=== PATIENT | female | born 1955 | race Caucasian/White ===

== ENCOUNTER 2020-05-17 07:22 | Observation (INO) | payer OTHER ==
[~2020-05-17] VITALS: Ht 167.6 cm; Wt 114.6 kg
[2020-05-17 08:12] LABS: HEMATOCRIT 29.4 % (37.0-47.0); HEMOGLOBIN 10.2 gm/dL (12.0-15.0); MCH 32.2 pg (26.0-34.0); MCHC 34.7 g/dL (28.0-37.0); RBC 3.16 mil/uL (4.20-5.00); RDW 15.6 % (10.5-14.5)
[2020-05-17 08:17] VITALS: BP 149/103
[2020-05-17 08:30] LABS: CALCIUM 8.5 mg/dL (8.5-10.1); CREATININE 1.1 mg/dL (0.6-1.0); POTASSIUM 3.3 mmol/L (3.5-5.1)
[2020-05-17] MEDS ORDERED: BENTYL 10 MG CA10 MG PO (08:33)
[2020-05-17] MEDS ORDERED: FUROSEMIDE 40 M40 MG PO (08:34)
[2020-05-17] MEDS ORDERED: GLIPIZIDE 10 MG10 MG PO (08:34)
[2020-05-17] MEDS ORDERED: ASA81BEC PO (08:35)
[2020-05-17] MEDS ORDERED: SIMVASTATIN80 MG PO (08:37)
[2020-05-17] MEDS ORDERED: METFORMIN HCL500 M3 PO (08:38)
[2020-05-17] MEDS ORDERED: KLOR-CON 1010 MEQ PO (08:38)
[2020-05-17] MEDS ORDERED: TOPROL XL50 MG PO (08:39)
[2020-05-17] MEDS ORDERED: PROTONIX40 M2 PO (08:40)
[2020-05-17] MEDS ORDERED: LISINOPRIL-HCT1 EACH PO (08:54)
--- NOTE | 2020-05-17 09:02 | EKG ---
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
[2020-05-17 12:49] VITALS: BP 147/61
[2020-05-17 13:12] VITALS: BP 146/65
--- NOTE | 2020-05-17 15:56 | NUR ---
[age] YEAR OLD FEMALE ADMITTED TO 2N ROOM 216 POST CARDIAC CATH. VSS, SR ON TELE, IVF INFUSING PER ORDER. PT DENIES PAIN/SOA. RIGHT GROIN SITE SOFT C/D/I. PT TOLERATES SNACK AFTER SURGERY. PT UP WALKING TO RESTROOM AFTER 3PM STANDBY ASSIST. PT AT BEDSIDE DURING ADMISSION ASSESSMENT. WILL CONTINUE TO MONITOR.
[2020-05-17 20:38] VITALS: BP 121/49
[2020-05-18 03:06] LABS: GLYCOHEMOGLOBIN (HGB A1C) 6.7 % (4.8-5.6)
[2020-05-18 03:40] VITALS: BP 140/57
--- NOTE | 2020-05-18 04:04 | NUR ---
ASSUMED CARE OF PATIENT AT 1900. RIGHT GROIN SITE REMAINS C/D/I. PULSES PALPABLE. PATIENT AMBULATING INDEPENDENTLY IN ROOM.
[2020-05-18 05:53] LABS: HEMATOCRIT 28.7 % (37.0-47.0); HEMOGLOBIN 9.9 gm/dL (12.0-15.0); MCH 32.7 pg (26.0-34.0); MCHC 34.6 g/dL (28.0-37.0); MCV 94.3 fL (80.0-100.0); RBC 3.04 mil/uL (4.20-5.00); RDW 15.3 % (10.5-14.5); WBC 3.7 thou/uL (4.0-11.0)
[2020-05-18 06:12] LABS: ALBUMIN 3.3 g/dL (3.4-5.0); CALCIUM 8.8 mg/dL (8.5-10.1); POTASSIUM 3.7 mmol/L (3.5-5.1); TOTAL BILIRUBIN 2.1 mg/dL (0.2-1.0); TOTAL PROTEIN 6.9 g/dL (6.4-8.2); TROPONIN-I 0.48 ng/mL (<0.06)
--- NOTE | 2020-05-18 07:39 | EKG ---
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: PAULIE : 1955 Requested By: Summer Rothman Order Number: [id number] MD: Brandon Harris Measurements Intervals [place] Rate: 78 P: 84 [place]: 185 QRS: -9 QRSD: 97 T: 52 QT: 400 QTc: 456 Interpretive Statements Sinus rhythm Baseline wander in lead(s) V4,V5 Compared to ECG 05/17/2020 08:18:29 No significant changes Electronically Signed On 05-18-2020 7:38:59 FACILITIES FLIGHT CHECK PILOT by Brandon Harris [email or web address] <ELECTRONICALLY SIGNED> By: Brandon Harris MD, [facility] 05/18/2038 6 6 Brandon Harris MD, [facility] /EPI
[2020-05-18] MEDS ORDERED: ASA81BEC PO (07:42)
[2020-05-18] MEDS ORDERED: PLAVIX 75 MG TA75 M1 PO (07:42)
[2020-05-18 07:46] VITALS: BP 139/56
--- NOTE | 2020-05-18 08:27 | NUR ---
PT. ALERT AND TALKING WITH STAFF, VERY PLEASANT OVERALL TODAY, EXCITED TO GO HOME. [place]AR [place] SO WILL NEED SOME NOTICE FOR HER TRANSPORTATION. DENIES ANY CHEST PAIN, DENIES ANY SOB. RIGHT GROIN SITE IS C,D,I WITH NO HEMATOMA, SOFT TO TOUCH AND PALPATION. LONG DISCUSSION ON WHAT A HEART HEALTHY DIET CONSISTS OF AND HOW TO PROGRESS WITH SUCH WHEN SHE GOES HOME. COMPLIMENTARY OF OUR HOSPITAL AND OUR CARE OVERALL AND DR WINSTON. NSR, NO ECTOPY ON THE MONITOR AND ON ROOM AIR ONLY.
[2020-05-18 09:56] VITALS: BP 139/56
--- NOTE | 2020-05-19 17:27 | CATHLAB ---
[facility] [place]aliy[place] [address] INVASIVE PROCEDURE REPORT Name: SHANIQUA RAM Room #: 216-P [facility] Tima MMegan#: [id number] Admission: 05/17/20 Attend Phys: Phani Lee MD, Discharge: 05/18/20 Date of : 51 Report #: [id number] THIS REPORT FOR: cc: Rizwan Shaw Jeffrey W. DO Mancuso, Gerald M. MD [facility] ~ APPROVED REPORT Study performed: 05/17/2020 09:26:09 Patient Details Patient Status: Out-Patient Room #: The patient is a 64 year-old female Event Personnel Phani Lee Stripper And Taper, Lev Buitrago RN RN, Sarah Rojo RTR Scrub, Jonathan Thomas RTR Monitor Procedures Performed Right and Left Heart Cath Lt Vent/Cors/Grafts 4236753 RLLVCORCAB PAUL Place w/wo Plasty Single RCA 654873 Art Access - R femoral artery* Reagan Access - R femoral vein 72548 Initial Mod Sed Same Phys/QHP Gr5y 133700 Hemostasis w/ Mynx Abdominal Aortography 590126 31057 Mod Sed Same Phys/QHP Ea 560602 Procedure Narrative The patient was brought electively to the Cardiac Catheterization Laboratory and was prepped and draped in a sterile manner. The Right Groin^ was infiltrated with 1% Lidocaine subcutaneous anesthesia. A Right Heart Catheterization was performed with a 7 Fr. Gaastra-Jaime catheter and pressure were recorded. Cardiac outputs were obtained by the Thermal Dilution method. A PINNACLE 6FR Sheath #[id number] sheath was inserted into the RFA^. Coronary angiography was performed using coronary diagnostic catheters. The right coronary system was accessed and visualized with a JR4 catheter. The left coronary system was accessed and visualized with a JL4 catheter. The left ventricle was accessed and visualized with a PIGTAIL catheter. Closure device was deployed with a Fr MYNXGRIP 6/7F #[id number]. Hemostasis was obtained with manual pressure following sheath removal without any complications. The patient tolerated the procedure well and there were no complications associated with the procedure. There was no hematoma. Intraoperative Conscious Sedation [address] [address] INVASIVE PROCEDURE REPORT Name: SHANIQUA RAM Room #: 216-P [facility] IN [facility]#: [id number] Admission: 05/17/20 Attend Phys: Phani Lee, Discharge: 05/18/20 Date of : 51 Report #: [id number] Sedation start time: 10:40 Case end Time: 11:55 Fentanyl 50 mcg Versed 1.5 mg Fluoro Time: 11.30 minutes Dose: DAP 49120.20 cGycm2 2992 mGy Contrast Type and Amount: Visipaque 190 ml Hemodynamics The right atrial mean pressure is 8 mmHg. The right ventricular pressure is 49/4 mmHg. The pulmonary artery pressure is 43/15 mmHg with a mean of 30 mmHg. The mean pulmonary capillary wedge pressure is 23 mmHg. The aortic pressure is 144/65 mmHg with a mean of 96 mmHg. The left ventricular pressure is 139/13 mmHg with a mean of mmHg. The left ventricular end diastolic pressure is 30 mmHg. The cardiac output using thermo method is 7.90 L/min. The cardiac index using thermo method is 3.59 L/min/m2. PCI Technique Lesion Percutaneous coronary intervention was performed on the proximal right coronary artery. A LAUNCHER 6FR 3DRC #[id number] Guide Catheter was used to engage the RCA ostium. A Luge Wire .014 x 182CM #[id number] Interventional Guidewire was used to cross the lesion. BALLOON DILATION A Balloon catheter Sprinter OTW 2.5 x 12 #[id number] was inserted and inflated up to 14.00atm for 21seconds. Additional Inflation: 18.00atm for 23seconds. STENT DEPLOYMENT A stent RESOLUTE ROE OTW 3.5 X 12 #[id number] was inserted and inflated up to 18.00atm for 39seconds. Conclusion #1. Successful PTCA stent of a high-grade proximal dominant RCA lesion with placement of a 3.5 x 12 resolute drug-eluting stent AVTAR grade III flow. Proximal to this is a 50% narrowing and then distally at the posterior lateral takeoff is a 75% narrowing this is an extensively calcified and dominant vessel brisk flow is currently noted post procedure. #2 left main short mildly diseased calcified giving rise to LAD and circumflex. #3 LAD with mild irregularities there is a proximal eccentric lesion at a diagonal bifurcation of 70 to 75% with a well-preserved vessel and large diagonal branch. #4 circumflex OM nondominant with mild disease [facility] [address] [place] [address] INVASIVE PROCEDURE REPORT Name: SHANIQUA RAM Room #: 216-P DIS IN M.R.#: [id number] Admission: 05/17/20 Attend Phys: Phani Lee, Discharge: 05/18/20 Date of : 51 Report #: [id number] #5 normal left jugular size and systolic function EF 55% #6 abdominal aortogram shows mild aortic ectasia but no significant aneurysm. Recommendations and plan: Dual antiplatelet therapy has been initiated. She is hemodynamically stable. This is extensively calcified dominant right coronary artery. There is an ostial posterior lateral branch lesion but it may be difficult to technically get to this lesion due to the extensive calcification. Transferred to CCU in stable condition. Will follow up with stress testing looking for areas of ischemia involving the posterior lateral branch and LAD before staged intervention. <ELECTRONICALLY SIGNED> By: Phani Lee MD, FACC 05/19/201726 26 26 Phani Lee MD, FACC /INF
== END 2020-05-18 11:57 | disposition home or self-care (01) ==
LOC: CATH 07:22 → 2N 11:21 → CATH 11:22 → 2N 05-18 11:57
PROVIDERS: Nurse Practitioner Adult Health; ADMIT Internal Medicine Cardiovascular Disease; ATTEND Internal Medicine Cardiovascular Disease
DX: I25.10 Atherosclerotic heart disease of native coronary artery without angina pectoris (principal); I10 Essential (primary) hypertension; E78.00 Pure hypercholesterolemia, unspecified; E11.9 Type 2 diabetes mellitus without complications; I47.1 Supraventricular tachycardia; E78.5 Hyperlipidemia, unspecified; E66.9 Obesity, unspecified; G47.33 Obstructive sleep apnea (adult) (pediatric); Z79.84 Long term (current) use of oral hypoglycemic drugs; Z79.82 Long term (current) use of aspirin; Z79.899 Other long term (current) drug therapy

== ENCOUNTER → 2020-06-19 | Outpatient (CLI) | payer OTHER ==
[~2020-06-19] MED LIST: ASA81BEC PO; BENTYL 10 MG CA10 MG PO; FUROSEMIDE 40 M40 MG PO; GLIPIZIDE 10 MG10 MG PO; KLOR-CON 1010 MEQ PO; LISINOPRIL-HCT1 EACH PO; METFORMIN HCL500 M3 PO; PLAVIX 75 MG TA75 M1 PO; PROTONIX40 M2 PO; SIMVASTATIN80 MG PO; TOPROL XL50 MG PO
== END ==
LOC: SJCVC 11:56
PROVIDERS: ATTEND Internal Medicine Cardiovascular Disease
DX: I25.10 Atherosclerotic heart disease of native coronary artery without angina pectoris (principal); I10 Essential (primary) hypertension; E78.00 Pure hypercholesterolemia, unspecified; E11.9 Type 2 diabetes mellitus without complications; I47.1 Supraventricular tachycardia; Z79.82 Long term (current) use of aspirin; Z79.899 Other long term (current) drug therapy

== ENCOUNTER 2020-11-17 16:43 | Inpatient (IN) | payer OTHER ==
[~2020-11-17] VITALS: Ht 167.6 cm; Wt 116.4 kg
[2020-11-17 18:28] VITALS: BP 112/59
--- NOTE | 2020-11-17 19:40 | NUR ---
RECEIVED PT FROM EMS. PT COMES FROM [place], [place]. PT IS AXOX4, WITH SOME DYSPHAGIA. VSS, AFEBRILE, AFIB ON MONITOR WITH HR 100s. ADMISSION COMPLETED. PT IS TO BE NPO. GI CONSULTED. DR BROWN CONSULTED. PT IS ON HIGH FALL RISK PRECAUTIONS. NO CONCERNS AT THIS TIME.
[2020-11-17 21:01] VITALS: BP 134/65
[2020-11-17] MEDS ORDERED: PACERONE200 MG PO (21:43)
[2020-11-17 22:57] VITALS: BP 108/60; BP 111/61
[2020-11-18] VITALS (7 sets, daily range): BP systolic 106–133; BP diastolic 49–76
[2020-11-18 03:30] LABS: HEMATOCRIT 22.1 % (37.0-47.0); HEMOGLOBIN 7.5 gm/dL (12.0-15.0); MCH 30.4 pg (26.0-34.0); MCHC 33.7 g/dL (28.0-37.0); RBC 2.46 mil/uL (4.20-5.00); RDW 16.8 % (10.5-14.5); WBC 3.6 thou/uL (4.0-11.0)
[2020-11-18 03:41] LABS: CALCIUM 8.5 mg/dL (8.5-10.1); CREATININE 1.5 mg/dL (0.6-1.0); MAGNESIUM 1.7 mg/dL (1.8-2.4); POTASSIUM 3.5 mmol/L (3.5-5.1); TOTAL BILIRUBIN 1.8 mg/dL (0.2-1.0); TOTAL PROTEIN 6.4 g/dL (6.4-8.2)
--- NOTE | 2020-11-18 04:08 | NUR ---
ASSUMED PT CARE AT 1900.PT'S DTR AND SPOUSE AT BEDSIDE AT SHIFT CHANGE.PT GOT 1 UNIT OF BLOOD ORDERED,NO TRANSFUSION RXN NOTED.PT ALERT AND ORIENTED WITH CONFUSION.BRUISING NOTED TO HER ABD AND ARMS.BG MONITORED NO COVERAGE NEEDED AT HS.PT NPO AT THIS TIME FOR AN EGD LATER IN THE DAY.PT'S FAMILY UPDATED ON THE PROCEDURE.PT EPOSITIONED PER HER REQUEST.PT SLEEPING ON HER BED AT THIS TIME.CALL LIGHT WITHIN REACH.
--- NOTE | 2020-11-18 15:45 | NUR ---
PT IS AXOX4, PLEASANT, STILL SOMEWHAT DYSPHAGIC. VSS, AFEBRILE, ST ON MONITOR. PT SCHEDULED EGD SCOPE TODAY. PT RECEIVING BLOOD POST PROCEDURE. POC IS TO CONTINUE TO MONITOR H+H, BP/HR. PT DISCONTINUED FROM RX BLOOD THINNERS, USING RX MEDS TO CONTROL HR. FALL PRECAUTIONS IN PLACE. FREQUENT MONITORING.
[2020-11-18 20:01] LABS: HEMATOCRIT 24.5 % (37.0-47.0); HEMOGLOBIN 8.2 gm/dL (12.0-15.0); MCH 30.3 pg (26.0-34.0); MCHC 33.5 g/dL (28.0-37.0); MCV 90.3 fL (80.0-100.0); RBC 2.71 mil/uL (4.20-5.00); RDW 16.6 % (10.5-14.5)
[2020-11-19] VITALS (8 sets, daily range): BP systolic 108–148; BP diastolic 45–77
--- NOTE | 2020-11-19 01:51 | NUR ---
PT WAS OBSERVED LYING ON HER BED WATCHING TV IN THE COMPANY OF HER DTR AT SHIFT CHANGE.PT MORE ALERT, A LITTLE APHASIC.PT CONT ON IVF AND PROTONIX DRIP.ORDER NOTED FOR A CT SCAN,COMPLETED.BG MONITORED AT HS ,COVERAGE GIVEN.PT SLEEPING WIYH HER CPAP A THIS TIME.CALL LIGHT WITHIN REACH.
[2020-11-19 05:34] LABS: HEMATOCRIT 25.1 % (37.0-47.0); HEMOGLOBIN 8.4 gm/dL (12.0-15.0); MCH 30.3 pg (26.0-34.0); MCHC 33.6 g/dL (28.0-37.0); MCV 90.3 fL (80.0-100.0); PLATELET COUNT 109 thou/uL (150-400); RBC 2.78 mil/uL (4.20-5.00); RDW 16.3 % (10.5-14.5); WBC 2.9 thou/uL (4.0-11.0)
[2020-11-19 05:59] LABS: CALCIUM 8.4 mg/dL (8.5-10.1); CREATININE 1.4 mg/dL (0.6-1.0); MAGNESIUM 1.9 mg/dL (1.8-2.4); PHOSPHORUS 3.3 mg/dL (2.6-4.7); POTASSIUM 3.5 mmol/L (3.5-5.1); TOTAL BILIRUBIN 1.5 mg/dL (0.2-1.0); TOTAL PROTEIN 6.6 g/dL (6.4-8.2)
--- NOTE | 2020-11-19 09:06 | EKG ---
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: CLARI : 1955 Requested By: Makenna Perez Order Number: [id number] : Brandon Harris Measurements Intervals [place] Rate: 97 P: [place]: QRS: -1 QRSD: 98 T: 20 QT: 375 QTc: 477 Interpretive Statements Atrial fibrillation Borderline low voltage, extremity leads Compared to ECG 05/18/2020 07:07:53 Sinus rhythm no longer present Electronically Signed On 11-19-2020 9:06:43 CDT by Brandon Harris [email or web address] <ELECTRONICALLY SIGNED> By: Brandon Harris MD, [facility] 11/19/20905 6 6 Brandon Harris MD, FACC /EPI
[2020-11-19 09:13] LABS: ABSOLUTE NEUTROPHILS 1.5 thou/uL (1.4-8.2)
[2020-11-19 09:15] LABS: ANISOCYTOSIS 1+; POLYCHROMASIA OCCASIONAL
--- NOTE | 2020-11-19 10:43 | NUR ---
PT IS AXOX4, PLEASANT, SOME HESITANCY WHEN SPEAKING. VSS, AFEBRILE, AFIB ON MONITOR. DR CAMACHO CONSULTED, DR CARDOZA CONSULTED. PT HAD CT SCAN OF HEAD. NEURO ASSESSMENT CONDUCTED BY DR CARDOZA. POC IS TO CONTINUE PROTONIX AND ABX THERAPY, MONITOR VS. PT ON RX AMIODARONE. BLOOD THINNERS CURRENTLY ON HOLD. FALL PRECAUTIONS IN PLACE. NO CONCERNS AT THIS TIME.
[2020-11-20 04:00] VITALS: BP 129/67
[2020-11-20 06:16] LABS: ABSOLUTE NEUTROPHILS 2.4 thou/uL (1.4-8.2); BASOPHILS 0.5 % (0.0-2.0); EOSINOPHILS 4.3 % (0.0-3.0); HEMATOCRIT 24.2 % (37.0-47.0); HEMOGLOBIN 8.3 gm/dL (12.0-15.0); LYMPHOCYTES 20.5 % (24.0-44.0); MCH 30.3 pg (26.0-34.0); MCHC 34.3 g/dL (28.0-37.0); MCV 88.3 fL (80.0-100.0); MONOCYTES 8.3 % (1.0-8.0); PLATELET COUNT 114 thou/uL (150-400); POLYS 66.4 % (36.0-66.0); RBC 2.75 mil/uL (4.20-5.00); RDW 16.4 % (10.5-14.5); WBC 3.7 thou/uL (4.0-11.0)
[2020-11-20 06:31] LABS: CALCIUM 8.2 mg/dL (8.5-10.1); CREATININE 1.1 mg/dL (0.6-1.0); MAGNESIUM 1.8 mg/dL (1.8-2.4); POTASSIUM 3.8 mmol/L (3.5-5.1)
--- NOTE | 2020-11-20 07:38 | NUR ---
ASSUMED PT CARE AT CHANGE OF SHIFT, AFIB ON THE MONITOR HR IN THE 100S, ASSESSMENTS CHARTED, ENEMA GIVEN THIS MORNING, DENIES PAIN OR SOB, VSS, NO NEEDS AT THIS TIME, PASSED ON REPORT TO DAY NURSE
[2020-11-20 08:48] VITALS: BP 142/68
[2020-11-20 11:00] VITALS: BP 128/66
--- NOTE | 2020-11-20 13:22 | NUR ---
Received order for diabetic teaching with spouse/pt. 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 Hx diabetes, obesity, nonalcoholic cirrhosis. Pt is currently npo and ST orders to evaluate. Last A1C 6.7 in 05/2020. BG 118-292, recommend recheck A1C. Will followup with pt and spouse on 11/21 for diabetic education needs.
[2020-11-20 14:10] VITALS: BP 127/63
[2020-11-20] MEDS ORDERED: SODIUM BICARBO650 M3 PO (15:56)
[2020-11-20] MEDS ORDERED: B-12500 MCG PO (15:56)
[2020-11-20] MEDS ORDERED: NYSTATIN-TRIAMC15 GM TOP (15:56)
[2020-11-20] MEDS ORDERED: CARDIZEM CD 18180 M3 PO (15:56)
--- NOTE | 2020-11-20 16:29 | NUR ---
INITIAL ASSESSMENT: KASH reviewed chart and spoke with nursing and attending physician. Pt was transferred to [facility] from [facility] due to GI bleed/anemia. Pt had negative COVID test on 11/18. Pt has had an EGD and colonoscopy. 5N consulted. KASH met with pt, dtr and spouse at bedside. Introduced role of SW. Pt is alert/orientated x 4. Pt report she lives at home with her in [place]. Pt's dtr is in town and will be staying with pt and spouse upon discharge. Pt and family prefer pt return home with HH or outpatient therapy. Pt has a cane/walker at home. There are 2 steps to enter and no steps inside. Pt has used HH in the past. Unsure name of provider. Pt's PCP is Aron Ruth NP. KASH provided list of HH agencies who go to [place] ([facility] and [facility]). Pt's family to review and discuss. Discharge plan is anticipated for tomorrow. KASH updated attending physician. KASH is following to assist as needed with discharge planning.
[2020-11-20 20:00] VITALS: BP 136/75; BP 159/73
[2020-11-20 21:01] VITALS: BP 159/73
[2020-11-21 00:05] VITALS: BP 136/74
--- NOTE | 2020-11-21 03:38 | NUR ---
ASSUMED PT CARE AT 1900, PT IS AWAKE, ALERT AND ORIENTED, AFIB ON THE MONITOR WITH HR IN THE 120S, DENIES CP OR SOB, CARDIZEM GIVEN, VSS, ASSESSMENTS CHARTED, OTHER SCHEDULED MEDS GIVEN PER SEP, HR BETTER IN THE 90S TO LOW 100, SLEPPT MOST OF THE NIGHT, NO NEEDS AT THIS TIME, WILL CONTINUE TO MONITOR AND FOLLOW POC
[2020-11-21 04:00] VITALS: BP 146/75
[2020-11-21 04:45] VITALS: BP 146/75
[2020-11-21 08:30] LABS: HEMATOCRIT 25.9 % (37.0-47.0); HEMOGLOBIN 8.6 gm/dL (12.0-15.0); MCH 29.7 pg (26.0-34.0); MCHC 33.1 g/dL (28.0-37.0); MCV 89.9 fL (80.0-100.0); RBC 2.89 mil/uL (4.20-5.00); RDW 16.4 % (10.5-14.5); WBC 3.7 thou/uL (4.0-11.0)
--- NOTE | 2020-11-21 10:07 | 2DMMODE ---
[facility] [place] [address] 2 D/M-MODE ECHOCARDIOGRAM Name: SHANIQUA RAM Room #: 203-P ADM IN M.R.#: [id number] Admission: 11/17/20 Attend Phys: Makenna Perez MD Discharge: Date of : 51 Report #: [id number] THIS REPORT FOR: cc: Rizwan Shaw Jeffrey W. DO Santiago, Patrick MD [facility] ~ APPROVED REPORT Study performed: 11/21/2020 08:34:03 EXAM: Comprehensive 2D, Doppler, and color-flow Echocardiogram Patient Location: Bedside Room #: 203 Status: routine BSA: 2.22 HR: 83 bpm BP: 142/68 mmHg Rhythm: Atrial Fibrillation Other Information Study Quality: Good Indications Atrial Fibrillation Hx: CAD, PCI, SVT, HTN, HLP, DM. morbid obesity. 2D Dimensions RVDd: 42.84 mm IVSd: 10.65 (7-11mm) LVOT Diam: 21.04 (18-24mm) LVDd: 57.35 mm PWd: 10.65 (7-11mm) LVDs: 40.73 (25-40mm) Left Atrium: 41.30 (27-40mm) Aortic Root: 34.05 mm Volumes Left Atrial Volume (Systole) Single Plane 4CH: 91.93 mL Single Plane 2CH: 92.71 mL LA ESV Index: 47.00 mL/m2 Aortic Valve AoV Peak Uriel.: 1.39 m/s AO Peak Gr.: 7.67 mmHg LVOT Max P.39 mmHg LVOT Max V: 1.05 m/s [facility] [address] [place] [address] 2 D/M-MODE ECHOCARDIOGRAM Name: SHANIQUA RAM Room #: 203-P [facility] IN ..#: [id number] Admission: 11/17/20 Attend Phys: Makenna Perez, Discharge: Date of : 51 Report #: [id number] Vmax: 2.63 cm2 Mitral Valve MV Decel. Time: 189.64 ms MV E Max Uriel.: 1.51 m/s Pulmonary Valve PV Peak Uriel.: 0.92 m/s PV Peak Gr.: 3.42 mmHg Tricuspid Valve TR Peak Uriel.: 2.66 m/s RAP Estimate: 5.00 mmHg TR Peak Gr.: 28.32 mmHg PA Pressure: 33.00 mmHg Left Ventricle The left ventricle is normal size. There is normal LV segmental wall motion. There is normal left ventricular wall thickness. Left ventricular systolic function is low normal. LVEF is 50-55%. This study is not technically sufficient to allow evaluation of the LV diastolic function due to atrial fibrillation. Right Ventricle The right ventricle is normal size. The right ventricular systolic function is normal. Atria Left atrium is moderately dilated. Right atrium is mildly dilated. Aortic Valve The aortic valve is normal in structure; mildly thickened. No aortic regurgitation is present. There is no aortic valvular stenosis. Mitral Valve The mitral valve is normal in structure. Mild mitral annular calcification. Mild to moderate mitral regurgitation. No evidence of mitral valve stenosis. Tricuspid Valve The tricuspid valve is normal in structure. Mild to moderate tricuspid regurgitation. Estimated PAP is 35-40mmHg. Pulmonic Valve Pulmonic valve is not well visualized. Trace pulmonic regurgitation. [facility] [address] [address] 2 D/M-MODE ECHOCARDIOGRAM Name: SHANIQUA RAM Room #: 203-P ADM IN M.R.#: [id number] Admission: 11/17/20 Attend Phys: Makenna Perez, Discharge: Date of : 51 Report #: [id number] Great Vessels The aortic root is normal in size. The ascending aorta is normal in size. IVC is normal in size and collapses >50% with inspiration. Pericardium There is no pericardial effusion. <Conclusion> Study performed in atrial fibrillation Normal left ventricular size/wall thickness Ejection fraction 50-55% Normal right ventricular size/function Left atrium moderately dilated Right atrium mildly dilated Color-flow Doppler study was performed of the aortic/mitral/tricuspid/pulmonary valve Normal aortic valve structure and function Mild mitral annular calcification Mild to moderate tricuspid valve insufficiency Pulmonary systolic pressure estimated 35/40 mmHg Normal aortic root size No pericardial effusion <ELECTRONICALLY SIGNED> By: Brandon Harris MD, FACC 11/21/20 1007 1007 1007 Brandon Harris MD, FAC /INF
--- NOTE | 2020-11-21 11:08 | NUR ---
SW reviewed chart and spoke with attending physician. Pt is progressing towards goals for discharge. Discharge home with HH is anticipated in 1-2 days. SW met with pt and dtr at bedside to discuss discharge plan. Pt's spouse is calling the two agencies that go to pt's home: [facility] and [facility]. SW reminded pt and dtr that [facility] does not have physical therapy available this week. Pt's spouse to interview both HH agencies. Pt/dtr is to contact SW with preference of HH agency, in order for HH referral to be sent. SW is following to assist as needed with discharge planning.
[2020-11-21 12:34] VITALS: BP 119/56
--- NOTE | 2020-11-21 12:58 | NUR ---
AWAKE, ALERT, CALM. ADULT DTR AT BEDSIDE. CALLS FOR ASSISTANCE APPROPRIATELY. AFIB PER TELE; DILTIAZEM ADDED, HR BETTER CONTROLLED.
[2020-11-21 16:00] VITALS: BP 109/70; BP 137/66
[2020-11-21 20:30] VITALS: BP 123/53
[2020-11-22 02:39] LABS: HEMATOCRIT 25.5 % (37.0-47.0); HEMOGLOBIN 8.4 gm/dL (12.0-15.0); MCH 29.9 pg (26.0-34.0); MCHC 33.1 g/dL (28.0-37.0); MCV 90.5 fL (80.0-100.0); RBC 2.82 mil/uL (4.20-5.00); RDW 16.5 % (10.5-14.5); WBC 5.4 thou/uL (4.0-11.0)
--- NOTE | 2020-11-22 03:44 | NUR ---
ASSESSMENTS CHARTED, MEDS CHARTED GIVEN. PATIENT RESTING IN BED DURING SHIFT. USING HOME CPAP AT [facility]. UP WITH WALKER TO BATHROOM. PATIENT HAS MULTIPLE BRUISES FROM FALL AT HOME. PLAN OF CARE IS TO GO HOME WITH HOME HEALTH. FALL PRECAUTIONS IN PLACE DURING SHIFT.
[2020-11-22 04:45] VITALS: BP 113/63
[2020-11-22 07:18] VITALS: BP 119/44
--- NOTE | 2020-11-22 08:24 | NUR ---
BPCI letter and preferred provider list provided to patient, live in home setting
[2020-11-22 10:49] VITALS: BP 119/44
[2020-11-22 11:29] VITALS: BP 144/64
[2020-11-22] MEDS ORDERED: PROTONIX40 M4 PO (11:58)
[2020-11-22] MEDS ORDERED: METOPROLOL SUCC50 MG PO (11:58)
[2020-11-22] MEDS ORDERED: ELIQUIS2.5 MG PO (11:58)
[2020-11-22] MEDS ORDERED: CARDIZEM CD120 MG PO (11:58)
[2020-11-22 12:28] VITALS: BP 119/44
--- NOTE | 2020-11-22 13:15 | NUR ---
ASSUMED CARE SHIFT CHANGE. VSS. DENIES SOB. DENIES PAIN. DAUGHTER AT BEDSIDE. UPDATED ON POC. PLAN FOR HOME WITH HH. DC ORDERS. DISCUSSED WITH PT, COMMUNICATES UNDERSTANDING. TELE REMOVED. IV REMOVED. PT TO LEAVE UNIT WITH ALL BELONGINGS ACCOMPANIED BY DAUGHTER.
[2020-11-22] MEDS ORDERED: XIFAXAN550 M1 PO (13:38)
--- NOTE | 2020-11-22 15:10 | NUR ---
met with patient and dtr. They chose [facility]. Sp with admissions at [facility] and faxed initial referral before orders. Rachel in admissions reports Rn cannot see patient until friday and therpay not until next week. Updated patient and family they are agreeable. Updated phys who is agreeable if family ok and they are. Faxed final orders. SP with Rachel in admissions who received final orders. Updated correct phone number to call for HH care. no further needs
--- NOTE | 2020-11-24 08:09 | P ---
[facility] [place] [address] PROCEDURE REPORT Name: SHANIQUA RAM Room #: 203-P [facility] IN M.R.#: [id number] Admission: 11/17/20 Attend Phys: Makenna Perez MD Discharge: 11/22/20 Date of : 51 Report #: [id number] THIS REPORT FOR: cc: Rizwan Shaw Jeffrey W. DO McElhinney, Christian C. MD ~ DOC #: [id number] cc: Makenna Perez MD, DO Logan Alejandre MD DATE OF SERVICE: 11/18/2020 PROCEDURE PERFORMED: Upper endoscopy with bleeding control. HISTORY OF PRESENT ILLNESS: The patient is a 65-year-old female with a history of anemia, chronic atrial fibrillation, on Eliquis. She has a history of nonalcoholic cirrhosis, gastroesophageal reflux disease, on daily PPI therapy. Admit hemoglobin at [facility] was 6.5. She has had altered mental status recently as well. She also takes aspirin and Plavix. No previous history of GI bleed. Unsure when her last EGD if ever and colonoscopy was performed. The patient with some dark stools recently. DESCRIPTION OF PROCEDURE: The risks and benefits of the procedure were explained to the patient, those risks including but not limited to bleeding, perforation and the risk of sedation. She understood these risks and gave informed consent. Sedation was given using propofol per anesthesia. Next, using a standard Olympus upper endoscope, the scope was placed in the patient's mouth and advanced under direct vision through the esophagus, stomach and into the second portion of the duodenum. The esophagus was normal throughout. The GE junction was normal. There was a mild area of gastritis in the mid body of the stomach. The fundus was normal. 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 No evidence of bleeding. There was no blood throughout the exam today. Because of her history of anemia and blood thinners, I did proceed with cauterization using an APC cautery of all areas that were seen in the gastric antrum. No evidence of bleeding after cauterization. The pylorus was normal and patent. The duodenal bulb, first and second portion were all normal. The scope was then withdrawn and the procedure terminated. The patient tolerated the procedure well. IMPRESSION: 1. 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 No active bleeding, but can be etiology of anemia and gastrointestinal bleed, status post APC cautery treatment today. 2. Mild gastritis in the mid body. No evidence of bleeding. 3. Otherwise, normal upper endoscopy. [address] [address] PROCEDURE REPORT Name: SHANIQUA RAM Room #: 203-P [facility] IN M.R.#: [id number] Admission: 11/17/20 Attend Phys: Makenna Perez MD Discharge: 11/22/20 Date of : 51 Report #: [id number] RECOMMENDATIONS: 1. Continue to hold anticoagulation at this time. 2. Continue PPI therapy. 3. Monitor hemoglobin now status post APC cautery. We will discuss when her last colonoscopy was performed, may need to consider repeat colonoscopy in the near future as well. Thank you for allowing me to participate in her care. Logan Farnsworth MD CCM/LESLY <ELECTRONICALLY SIGNED> By: Logan Farnsworth MD 11/24/20 0809 [id number] [id number] Logan Farnsworth MD /nt
--- NOTE | 2020-11-24 08:17 | HC ---
[facility] [place] [address] CONSULTATION Name: SHANIQUA RAM Room #: 203-[facility] M.R.#: [id number] Admission: 11/17/20 Attend Phys: Makenna Perez MD Discharge: 11/22/20 Date of : 51 Report #: [id number] THIS REPORT FOR: cc: Rizwan Shaw Jeffrey W. DO McElhinney, Christian C. MD ~ DOC #: [id number] cc: Makenna Perez MD, Linh Llanesdiqui Logan Farnsworth MD DATE OF SERVICE: 11/18/2020 HISTORY OF PRESENT ILLNESS: The patient is a 65-year-old female with a history of anemia. She has chronic atrial fibrillation, on Eliquis. She was admitted to [facility] for evaluation of GI bleed. Hemoglobin at that time was 6.5. She had mental status changes, forgetfulness over the last 10 days. She reports melanotic type stools for several weeks. She has a history of nonalcohol cirrhosis. No previous history of upper GI bleed. She is on again, Eliquis, but also takes aspirin and Plavix. Apparently, she denies any abdominal pain. She has been feeling weak and dizzy. She has undergone a transfusion here of 1 unit of packed cells. Her hemoglobin at this time is 7.5. She states that her last colonoscopy was approximately 2 years ago. She has been followed by GI, Dr. Melton in the past. It is unclear if she has ever had an upper endoscopy. She denies any dysphagia. She does report some nausea and vomiting, but denies any hematemesis. She has a history of irritable bowel syndrome with diarrhea. No chest pain or shortness of breath at this time. Apparently, she is scheduled for cardioversion for her AFib in the next week. PAST MEDICAL HISTORY: Diabetes, fibromyalgia, arthritis, AFib, depression, gastroesophageal reflux disease. She is on Protonix at this time. Irritable bowel syndrome, hypertension, pancreatic insufficiency, coronary artery disease, status post stents, anemia, nonalcohol cirrhosis. PAST SURGICAL HISTORY: Previous cholecystectomy, hysterectomy, appendectomy. MEDICATIONS: Pacerone, Bentyl, Lasix, Glucotrol, simvastatin, potassium chloride, metformin, metoprolol, Protonix, lisinopril, hydrochlorothiazide. She is on aspirin, Eliquis and Plavix. ALLERGIES: No known drug allergies. REVIEW OF SYSTEMS: As per HPI. SOCIAL HISTORY: She denies any tobacco or alcohol use. FAMILY HISTORY: Negative for colon cancer. [address] [address] CONSULTATION Name: SHANIQUA RAM Room #: 203-P DIS IN M.R.#: [id number] Admission: 11/17/20 Attend Phys: Makenna Perez MD Discharge: 11/22/20 Date of : 51 Report #: [id number] PHYSICAL EXAMINATION: VITAL SIGNS: Temperature is 36.4, pulse is 113, blood pressure 113/55, respiratory rate is 18. GENERAL: She is alert and oriented x3 in no acute distress. HEENT: Sclerae nonicteric. Oropharynx clear. NECK: Supple, without lymphadenopathy. CARDIOVASCULAR: Irregular rate. CHEST: Clear to auscultation bilaterally anteriorly. ABDOMEN: Soft, nontender, nondistended. Normoactive bowel sounds. EXTREMITIES: No cyanosis, clubbing or edema. LABORATORY DATA: WBC 3.6, hemoglobin 7.5, platelet count is 128. Sodium 146, potassium 3.5, chloride 107, bicarbonate 25, BUN 36, creatinine 1.5, glucose 150. Hemoglobin A1c is 6.7, magnesium 1.7, lactic acid 1.8, calcium 8.5, total bilirubin 1.8, AST 30, ALT is 25, and alkaline phosphatase 69. Troponin 0.48, total protein 6.4, albumin is 3.0. ASSESSMENT AND PLAN: 1. Anemia, recent melanotic stools, likely upper gastrointestinal bleed. The patient has required 1 unit of packed cells. Hemoglobin at this time is 7.5 after transfusion. Would recommend upper endoscopy today for further evaluation. Agree with PPI therapy and holding anticoagulation therapy. Continue to monitor hemoglobin closely. I will make further recommendations after endoscopy. Thank you for allowing me to participate in her care. Logan Farnsworth MD [facility] <ELECTRONICALLY SIGNED> By: Logan Farnsworth MD 11/24/2017 0937 37 Logan Farnsworth MD /nt
== END 2020-11-22 13:18 | disposition home health service (06) | DRG 377 ==
LOC: 2N 16:43
PROVIDERS: Internal Medicine; Nurse Practitioner; Nurse Practitioner Adult Health; Psychiatry & Neurology Neurology; ADMIT Internal Medicine; ATTEND Internal Medicine
DX: K31.811 Angiodysplasia of stomach and duodenum with bleeding (principal); G93.41 Metabolic encephalopathy; D62 Acute posthemorrhagic anemia; N39.0 Urinary tract infection, site not specified; E87.2 Acidosis; K57.31 Diverticulosis of large intestine without perforation or abscess with bleeding; Z20.822 Contact with and (suspected) exposure to COVID-19; M19.90 Unspecified osteoarthritis, unspecified site; K21.9 Gastro-esophageal reflux disease without esophagitis; I25.10 Atherosclerotic heart disease of native coronary artery without angina pectoris; E11.22 Type 2 diabetes mellitus with diabetic chronic kidney disease; F32.9 Major depressive disorder, single episode, unspecified; N18.9 Chronic kidney disease, unspecified; G47.33 Obstructive sleep apnea (adult) (pediatric); R53.81 Other malaise; K74.60 Unspecified cirrhosis of liver; K58.9 Irritable bowel syndrome, unspecified; M79.7 Fibromyalgia; I48.0 Paroxysmal atrial fibrillation; E78.00 Pure hypercholesterolemia, unspecified; I12.9 Hypertensive chronic kidney disease with stage 1 through stage 4 chronic kidney disease, or unspecified chronic kidney disease; K76.0 Fatty (change of) liver, not elsewhere classified; K64.8 Other hemorrhoids; K72.90 Hepatic failure, unspecified without coma; D69.6 Thrombocytopenia, unspecified; Z95.5 Presence of coronary angioplasty implant and graft; Z90.49 Acquired absence of other specified parts of digestive tract; Z90.710 Acquired absence of both cervix and uterus; Z83.3 Family history of diabetes mellitus; Z79.01 Long term (current) use of anticoagulants; Z86.010 Personal history of colon polyps; Z23 Encounter for immunization; Z79.899 Other long term (current) drug therapy
CPT/HCPCS: 10081; 62110; 62900; 70005

== ENCOUNTER 2020-11-30 19:54 | Inpatient (IN) | payer OTHER ==
[~2020-11-30] VITALS: Ht 167.6 cm; Wt 124.7 kg
[~2020-11-30 19:54] MED LIST changes: +B-12500 MCG PO; +CARDIZEM CD 18180 M3 PO; +CARDIZEM CD120 MG PO; +ELIQUIS2.5 MG PO; +METOPROLOL SUCC50 MG PO; +NYSTATIN-TRIAMC15 GM TOP; +PACERONE200 MG PO; +PROTONIX40 M4 PO; +SODIUM BICARBO650 M3 PO; +XIFAXAN550 M1 PO
[2020-11-30] MEDS ORDERED: IRON325 M1 PO (20:24)
[2020-12-01] VITALS (7 sets, daily range): BP systolic 103–148; BP diastolic 52–66
[2020-12-01 04:32] LABS: CALCIUM 8.2 mg/dL (8.5-10.1); CREATININE 1.5 mg/dL (0.6-1.0); MAGNESIUM 1.9 mg/dL (1.8-2.4)
[2020-12-01 04:35] LABS: ABSOLUTE NEUTROPHILS 2.4 thou/uL (1.4-8.2); BASOPHILS 0.8 % (0.0-2.0); HEMATOCRIT 21.9 % (37.0-47.0); HEMOGLOBIN 7.3 gm/dL (12.0-15.0); LYMPHOCYTES 23.5 % (24.0-44.0); MCH 29.2 pg (26.0-34.0); MCHC 33.4 g/dL (28.0-37.0); MCV 87.4 fL (80.0-100.0); MONOCYTES 11.4 % (1.0-8.0); PLATELET COUNT 84 thou/uL (150-400); POLYS 62.3 % (36.0-66.0); RBC 2.51 mil/uL (4.20-5.00); WBC 3.8 thou/uL (4.0-11.0)
--- NOTE | 2020-12-01 08:21 | EKG ---
[address] [address] ELECTROCARDIOGRAM REPORT Name: SHANIQUA RAM Room #: 205- ADM IN M.R.#: [id number] Admission: 11/30/20 Attend Phys: Paulino Rogers MD Discharge: Date of : 51 Report #: [id number] [facility] Test Date: 2020-12-01 Test Time: 06:58:28 Pat Name: SHANIQUA RAM Department: Room: 205 P Gender: F [employer] Lead: FSCHWALBE : 1955 Requested By: Betsy Galindo Order Number: [id number] MD: Brandon Harris Measurements Intervals Cameron Rate: 85 P: [place]: QRS: 6 QRSD: 100 T: 57 QT: 553 QTc: 658 Interpretive Statements Atrial fibrillation Low voltage, precordial leads Nonspecific T abnormalities, lateral leads Prolonged QT interval Compared to ECG 11/19/2020 07:17:21 T-wave abnormality now present Prolonged QT interval now present Electronically Signed On 12-01-2020 8:21:00 CDT by Brandon Harris [email or web address] <ELECTRONICALLY SIGNED> By: Brandon Harris MD, [facility] 12/01/20820 0658 Brandon Harris MD, [facility] /[facility]
[2020-12-02 04:45] VITALS: BP 136/60
[2020-12-02 08:10] VITALS: BP 143/48
[2020-12-02 08:39] LABS: HEMATOCRIT 22.2 % (37.0-47.0); HEMOGLOBIN 7.1 gm/dL (12.0-15.0); MCH 28.5 pg (26.0-34.0); RBC 2.5 mil/uL (4.20-5.00); RDW 16.2 % (10.5-14.5)
[2020-12-02 08:41] LABS: MCHC 32.2 g/dL (28.0-37.0); MCV 88.5 fL (80.0-100.0)
[2020-12-02 08:47] LABS: CALCIUM 8.4 mg/dL (8.5-10.1); CREATININE 1.2 mg/dL (0.6-1.0)
[2020-12-02 08:55] LABS: WBC 1.8 thou/uL (4.0-11.0)
[2020-12-02 14:33] VITALS: BP 134/74; BP 140/68
[2020-12-02 15:38] VITALS: BP 151/73
[2020-12-02 20:15] VITALS: BP 154/65
[2020-12-03 04:29] LABS: HEMATOCRIT 24.7 % (37.0-47.0); HEMOGLOBIN 8.1 gm/dL (12.0-15.0); MCHC 32.8 g/dL (28.0-37.0); MCV 88.5 fL (80.0-100.0); RBC 2.79 mil/uL (4.20-5.00); RDW 15.8 % (10.5-14.5); WBC 2.2 thou/uL (4.0-11.0)
[2020-12-03 04:45] VITALS: BP 130/81
[2020-12-03 04:56] LABS: ALBUMIN 3.2 g/dL (3.4-5.0); CALCIUM 8.7 mg/dL (8.5-10.1); CREATININE 1.2 mg/dL (0.6-1.0); MAGNESIUM 1.8 mg/dL (1.8-2.4); POTASSIUM 3.8 mmol/L (3.5-5.1); TOTAL BILIRUBIN 1.5 mg/dL (0.2-1.0); TOTAL PROTEIN 6.8 g/dL (6.4-8.2)
[2020-12-03 07:40] VITALS: BP 139/80
[2020-12-03] MEDS ORDERED: PROTONIX 20 MG20 M1 PO (13:04)
[2020-12-03] MEDS ORDERED: METOPROLOL SUCC50 MG PO (13:04)
[2020-12-03] MEDS ORDERED: MEDROLDOSEPACK PO (13:05)
[2020-12-03 13:15] VITALS: BP 130/60
== END 2020-12-03 13:55 | disposition home health service (06) | DRG 308 ==
LOC: 2N 19:54
PROVIDERS: Nurse Practitioner; Nurse Practitioner Adult Health; ADMIT Internal Medicine; ATTEND Internal Medicine
PROC: 5A09357 Assistance with Respiratory Ventilation, Less than 24 Consecutive Hours, Continuous Positive Airway Pressure (ICD-10-PCS; principal; 2020-12-01)
PROC: 30233N1 Transfusion of Nonautologous Red Blood Cells into Peripheral Vein, Percutaneous Approach (ICD-10-PCS; 2020-12-02)
DX: I49.9 Cardiac arrhythmia, unspecified (principal); N17.0 Acute kidney failure with tubular necrosis; Z68.41 Body mass index [BMI] 40.0-44.9, adult; D61.818 Other pancytopenia; K92.1 Melena; I48.20 Chronic atrial fibrillation, unspecified; E66.01 Morbid (severe) obesity due to excess calories; E78.5 Hyperlipidemia, unspecified; I25.10 Atherosclerotic heart disease of native coronary artery without angina pectoris; I12.9 Hypertensive chronic kidney disease with stage 1 through stage 4 chronic kidney disease, or unspecified chronic kidney disease; N18.9 Chronic kidney disease, unspecified; E11.22 Type 2 diabetes mellitus with diabetic chronic kidney disease; M19.90 Unspecified osteoarthritis, unspecified site; K21.9 Gastro-esophageal reflux disease without esophagitis; K58.9 Irritable bowel syndrome, unspecified; G47.33 Obstructive sleep apnea (adult) (pediatric); K64.9 Unspecified hemorrhoids; E78.00 Pure hypercholesterolemia, unspecified; K74.60 Unspecified cirrhosis of liver; Z90.49 Acquired absence of other specified parts of digestive tract; Z95.5 Presence of coronary angioplasty implant and graft; Z90.710 Acquired absence of both cervix and uterus
CPT/HCPCS: 10081

== ENCOUNTER → 2020-12-05 | Outpatient (CLI) | payer OTHER ==
[~2020-12-05] MED LIST changes: +IRON325 M1 PO; +MEDROLDOSEPACK PO; +PROTONIX 20 MG20 M1 PO
== END ==
LOC: SJCVC 13:30
PROVIDERS: ATTEND Internal Medicine
DX: R94.31 Abnormal electrocardiogram [ECG] [EKG] (principal); I47.1 Supraventricular tachycardia; E78.00 Pure hypercholesterolemia, unspecified; I48.0 Paroxysmal atrial fibrillation; I07.1 Rheumatic tricuspid insufficiency; I25.10 Atherosclerotic heart disease of native coronary artery without angina pectoris; E11.22 Type 2 diabetes mellitus with diabetic chronic kidney disease; I12.9 Hypertensive chronic kidney disease with stage 1 through stage 4 chronic kidney disease, or unspecified chronic kidney disease; N28.9 Disorder of kidney and ureter, unspecified; G47.33 Obstructive sleep apnea (adult) (pediatric); Z90.49 Acquired absence of other specified parts of digestive tract; Z98.890 Other specified postprocedural states; Z79.899 Other long term (current) drug therapy; Z82.49 Family history of ischemic heart disease and other diseases of the circulatory system

== ENCOUNTER → 2021-01-16 | Outpatient (CLI) | payer OTHER | LOC: SJCVC 13:10 | PROVIDERS: ATTEND Internal Medicine | DX: R94.31 Abnormal electrocardiogram [ECG] [EKG] (principal); I48.0 Paroxysmal atrial fibrillation; I47.1 Supraventricular tachycardia; I48.91 Unspecified atrial fibrillation; I25.10 Atherosclerotic heart disease of native coronary artery without angina pectoris; E11.9 Type 2 diabetes mellitus without complications; I10 Essential (primary) hypertension; E78.5 Hyperlipidemia, unspecified; G47.33 Obstructive sleep apnea (adult) (pediatric); E78.00 Pure hypercholesterolemia, unspecified; Z79.899 Other long term (current) drug therapy ==

== ENCOUNTER → 2021-03-27 | Outpatient (CLI) | payer OTHER | LOC: SJCVC 13:12 | PROVIDERS: ATTEND Internal Medicine | DX: I48.0 Paroxysmal atrial fibrillation (principal); E11.9 Type 2 diabetes mellitus without complications; I10 Essential (primary) hypertension; E78.5 Hyperlipidemia, unspecified; G47.33 Obstructive sleep apnea (adult) (pediatric); Z79.899 Other long term (current) drug therapy ==

== ENCOUNTER → 2021-06-12 | Outpatient (CLI) | payer OTHER | LOC: SJCVC 15:07 | PROVIDERS: ATTEND Internal Medicine | DX: R94.31 Abnormal electrocardiogram [ECG] [EKG] (principal); I48.0 Paroxysmal atrial fibrillation; I07.1 Rheumatic tricuspid insufficiency; I10 Essential (primary) hypertension; E78.00 Pure hypercholesterolemia, unspecified; E11.9 Type 2 diabetes mellitus without complications; E78.5 Hyperlipidemia, unspecified; G47.33 Obstructive sleep apnea (adult) (pediatric); Z79.84 Long term (current) use of oral hypoglycemic drugs; Z79.899 Other long term (current) drug therapy; Z95.818 Presence of other cardiac implants and grafts ==